=== PATIENT | male | born 1990 | race Caucasian/White ===

== ENCOUNTER 2017-10-04 07:19 | Emergency (ER) | payer OTHER ==
[~2017-10-04] VITALS: Ht 172.7 cm; Wt 98.5 kg
[2017-10-04 07:22] VITALS: TEMP 36.8; Ht 172.7 cm; Wt 98.5 kg
[2017-10-04] MEDS ORDERED: ONDANSETRON INJ 2 MG/ML 2 ML VIAL IV STA (07:30)
[2017-10-04 07:57] LABS: BASO % 0.8 %; BASO ABS # 0.04 K/uL (0-0.2); EOS % 4.8 %; EOS ABS # 0.25 K/uL (0-0.5); HEMATOCRIT 43.6 % (42-52); HEMOGLOBIN 15.5 g/dL (14.0-18.0); IG# 0.01 K/uL (0.00-0.02); LYMPH ABS # 1.76 K/uL (1.2-3.4); MEAN CELL VOLUME 87.2 fL (80-100); MEAN CORPUSCULAR HGB CONC 35.6 g/dl (32-36); MEAN PLATELET VOLUME 9.8 fL (7.4-10.4); MONO % 9.9 %; MONO ABS # 0.51 K/uL (0.11-0.59); NEUT % 50.3 %; PLATELET COUNT 255 K/uL (130-400); RED CELL DISTRIBUTION WIDTH CV 12.8 % (11.5-14.5); RED CELL DISTRIBUTION WIDTH SD 40.9 fL (36.4-46.3); WHITE BLOOD COUNT 5.17 K/uL (4.8-10.8)
[2017-10-04 08:05] LABS: CALCIUM 8.7 mg/dl (8.5-10.1); CREATININE 0.95 mg/dl (0.60-1.40)
[2017-10-04] MEDS ORDERED: KETOROLAC TROMETHAMINE 30 MG/ML VIAL IV STA (08:29)
[2017-10-04] MEDS ORDERED: KETOROLAC TROMETHAMINE 30 MG/ML VIAL ONE ×2 (08:55→08:58)
--- NOTE | 2017-10-04 09:31 | DIAGNOSTIC IMAGING REPORT ---
ABD/PELVIS WITHOUT FOR STONE HISTORY: 27 years-old Male Left flank pain acute left-sided flank pain. COMPARISON: None available TECHNIQUE: Multiple axial CT images of the abdomen and pelvis were obtained without IV contrast. A dose lowering technique was used consistent with the principals of TIMOTHY. FINDINGS: Minimal subsegmental dependent bibasilar atelectasis. No pneumatosis or pneumoperitoneum. The imaged inferior cardiac chambers are unremarkable. Evaluation of the solid abdominal organs is limited without use of contrast. Within the limitations of the study, the liver, gallbladder, pancreas and adrenal glands are within normal limits. There are punctate scattered calcifications throughout the spleen suggesting prior granulomatous disease. 4 mm nonobstructing calculus involves the interpolar right kidney. No right ureteral calculi. There are 2 stones present within the superior pole left kidney measuring 2 and 3 mm respectively. 2 mm nonobstructing calculus involves the inferior pole left kidney. There is mild left-sided hydroureteronephrosis secondary to a 4 x 3 x 4 mm calculus of the distal left ureter which is present approximately 2 cm proximal to the ureterovesicular junction. Urinary bladder and prostate are within normal limits. Aorta is normal in course and caliber. No bulky adenopathy. There is no bowel obstruction or focal bowel wall thickening. Mild colonic diverticulosis without CT evidence of acute diverticulitis. Normal appendix. Soft tissues are unremarkable. Bones appear to be intact. IMPRESSION: 1. Mild left-sided hydroureteronephrosis secondary to a 4 x 3 x 4 mm calculus of the distal left ureter, 2.0 cm proximal to the ureterovesicular junction. 2. Bilateral nonobstructing nephrolithiasis. 3. Mild colonic diverticulosis without diverticulitis. 4. Normal appendix. The above report was generated using voice recognition software. It may contain grammatical, syntax or spelling errors. Electronically signed by: Ja Duvall M.D. 10/04/2017 9:30 AM Dictated Date/Time: 10/04/2017 9:25 AM
[2017-10-04] MEDS ORDERED: HYDR-5688 PO (09:44)
[2017-10-04] MEDS ORDERED: TAMS0.4C38 PO (09:44)
[2017-10-04 10:06] VITALS: BP 111/83; PULSE 76; O2SAT 100
--- NOTE | 2017-10-04 10:10 | DIAGNOSTIC IMAGING REPORT ---
KUB HISTORY: Follow-up study to assess stone of the distal left ureter. L ureteral stone COMPARISON: None. FINDINGS: The bowel gas pattern is non-obstructive. There is no organomegaly. 4 mm calculus of the left distal left ureter is again seen which appears in stable positioning. No additional ureteral calculi identified. Bilateral nephrolithiasis also appears unchanged. No pneumoperitoneum or pneumatosis. No fracture. IMPRESSION: 1. Unchanged 4 mm calculus of the distal left ureter. 2. Bilateral nephrolithiasis. Electronically signed by: Ja Duvall M.D. 10/04/2017 10:08 AM Dictated Date/Time: 10/04/2017 10:07 AM
--- NOTE | 2017-10-04 18:52 | EMERGENCY ROOM VISIT NOTE ---
ED Visit Note First contact with patient: 07:25 CHIEF COMPLAINT: Left Flank and abdominal pain today HISTORY OF PRESENT ILLNESS: This 27-year-old white male patient had sudden onset of pain in the left flank and left lower quadrant of the abdomen about 2 hours ago. There is nausea but no vomiting. The patient has not noticed any blood in urine or had any increased frequency or pain with urination recently. There is no history of kidney stones. He states he thinks his mother had kidney stones. The pain is steady and severe. No trauma. No symptoms on the right. A female friend accompanies him today. No treatment yet. REVIEW OF SYSTEM: HEENT: No dizziness, visual problems, hearing loss, or tinnitus. There is no difficulty swallowing and no oral lesions are present. PULMONARY: No cough, shortness of breath, sputum production or hemoptysis. CARDIOVASCULAR: No chest pain, palpitations, shortness of breath or peripheral edema. GASTROINTESTINAL: No diarrhea, constipation, nausea, vomiting, or abdominal pain. GENITOURINARY: No dysuria, frequency, urgency or nocturia. NEUROLOGIC: No weakness, muscle tenderness, epilepsy or history of neurological problems. MUSCULOSKELETAL: No history of joint tenderness/swelling. No history of arthritis or arthralgias. SKIN: No rashes or lesions. PSYCHIATRIC: No history of depression or mental illness. ENDOCRINE: No history of diabetes, thyroid disorders, or abnormal hair growth. PMH: Supplemental sheet was reviewed and signed. Previous surgeries: None Medical history: Benign Current medications: None Allergies: NKDA Family history: Significant for kidney stones SOCIAL HISTORY: Patient lives at home. Non-smoker, no excessive alcohol use. PHYSICAL EXAM: Vital Signs: Temp 36.8 pulse 82 BP 129/83 respirations 20 general : Well-developed, well-nourished, young white male, in obvious discomfort. He is sitting on the bed. Alert and oriented. Skin: Warm and dry with good turgor. No rashes or lesions. No ecchymosis or erythema. The patient is not diaphoretic. No abrasions. HEART: Regular rate and rhythm without murmurs, ectopy, gallops, or rubs. Peripheral pulses are 2+. LUNGS: Clear to auscultation and breath sounds equal. No wheezes, rales, or rhonchi. Good air movement. ABDOMEN: Obese. Soft, non-tender, no hepato-splenomegaly, or masses. There is left CVA tenderness. There is also left lower quadrant abdominal discomfort with palpation. No suprapubic pain. NEUROLOGICAL: Sensory and motor functions grossly intact. EYES: PERRL, EOMI, no discharge or injection. EMERGENCY DEPARTMENT COURSE: Urinalysis shows 3+ blood. CBC and PRP were unremarkable. CT scan of the abdomen and pelvis without contrast shows a 4 mm left ureteral stone approximately 2 cm from the Bladder. He also has retained kidney stones in both the right and left kidneys. KUB was obtained for comparison at the urology office. The patient was given Toradol 30 mg IV for the pain. He is also given Zofran 4 mg IV for nausea. The pain had almost disappeared by the time of discharge. DIAGNOSIS: Left ureterolithiasis DISCHARGE INSTRUCTIONS AND TREATMENT: The patient was educated regarding today' s findings. Conservative care measures were discussed. High fluid intake, strain all urine passed over the next 2 days and bring any solid particles you find to your urologist for analysis. Prescription was given for Mobile 5 mg, 1- 2 tablets every 6 hours if needed for pain. Driving precautions were given. Return to the ER if the pain becomes severe. Kidney stone handout was provided. He is aware that this should pass. Prescription was also provided for Flomax 0.4 mg to be used once daily for the next 4 days. Hypotension symptoms were reviewed. Current/Historical Medications Scheduled Tamsulosin Hcl (Flomax), 0.4 MG PO DAILY Scheduled PRN Hydrocodone/Acetaminophen 5MG/325MG (Mobile 5MG/325MG), 1-2 TABLET PO Q6H PRN for Pain Allergies Coded Allergies: BEE STING (Unverified Allergy, Unknown, ANAPHYLAXIS, 10/04/17) Vital Signs Date Time Temp Pulse Resp B/P (MAP) Pulse Ox O2 Delivery O2 Flow Rate FiO2 10/04/17 10:06 76 20 111/83 100 10/04/17 08:21 71 20 125/69 95 10/04/17 07:22 36.8 82 20 129/83 99 Room Air Laboratory Results 10/04/17 07:40 Red Blood Count 5.00, Mean Corpuscular Volume 87.2, Mean Corpuscular Hemoglobin 31.0, Mean Corpuscular Hemoglobin Concent 35.6, Mean Platelet Volume 9.8, Neutrophils (%) (Auto) 50.3, Lymphocytes (%) (Auto) 34.0, Monocytes (%) (Auto) 9.9, Eosinophils (%) (Auto) 4.8, Basophils (%) (Auto) 0.8, Neutrophils # (Auto) 2.60, Lymphocytes # (Auto) 1.76, Monocytes # (Auto) 0.51, Eosinophils # (Auto) 0.25, Basophils # (Auto) 0.04 10/04/17 07:40 Test 10/04/17 00:00 10/04/17 07:40 Urine Color YELLOW Urine Appearance CLEAR (CLEAR) Urine pH 6.0 (4.5-7.5) Urine Specific Darden 1.022 (1.000-1.030) Urine Protein NEG (NEG) Urine Glucose (UA) NEG (NEG) Urine Ketones NEG (NEG) Urine Occult Blood 3+ (NEG) Urine Nitrite NEG (NEG) Urine Bilirubin NEG (NEG) Urine Urobilinogen NEG (NEG) Urine Leukocyte Esterase NEG (NEG) Urine WBC (Auto) 1-5 /hpf (0-5) Urine RBC (Auto) >30 /hpf (0-4) Urine Hyaline Casts (Auto) 1-5 /lpf (0-5) Urine Epithelial Cells (Auto) 10-20 /lpf (0-5) Urine Bacteria (Auto) NEG (NEG) White Blood Count 5.17 K/uL (4.8-10.8) Red Blood Count 5.00 M/uL (4.7-6.1) Hemoglobin 15.5 g/dL (14.0-18.0) Hematocrit 43.6 % (42-52) Mean Corpuscular Volume 87.2 fL (80-100) Mean Corpuscular Hemoglobin 31.0 pg (25-34) Mean Corpuscular Hemoglobin Concent 35.6 g/dl (32-36) Platelet Count 255 K/uL (130-400) Mean Platelet Volume 9.8 fL (7.4-10.4) Neutrophils (%) (Auto) 50.3 % Lymphocytes (%) (Auto) 34.0 % Monocytes (%) (Auto) 9.9 % Eosinophils (%) (Auto) 4.8 % Basophils (%) (Auto) 0.8 % Neutrophils # (Auto) 2.60 K/uL (1.4-6.5) Lymphocytes # (Auto) 1.76 K/uL (1.2-3.4) Monocytes # (Auto) 0.51 K/uL (0.11-0.59) Eosinophils # (Auto) 0.25 K/uL (0-0.5) Basophils # (Auto) 0.04 K/uL (0-0.2) RDW Standard Deviation 40.9 fL (36.4-46.3) RDW Coefficient of Variation 12.8 % (11.5-14.5) Immature Granulocyte % (Auto) 0.2 % Immature Granulocyte # (Auto) 0.01 K/uL (0.00-0.02) Anion Gap 9.0 mmol/L (3-11) Est Creatinine Clear Calc Drug Dose 132.9 ml/min Estimated GFR () 126.6 Estimated GFR (Non- 109.3 BUN/Creatinine Ratio 14.8 (10-20) Calcium Level 8.7 mg/dl (8.5-10.1) Medications Administered Medications (Trade) Dose Ordered Sig/David Route Start Time Stop Time Status Last Admin Dose Admin Ondansetron HCl (Zofran Inj) 4 mg NOW STAT IV 10/04/17 07:30 10/04/17 07:32 DC 10/04/17 08:18 4 MG Ketorolac Tromethamine (Toradol Inj) 30 mg STK-MED ONCE .ROUTE 10/04/17 08:55 10/04/17 08:56 DC 10/04/17 08:55 30 MG Departure Information Impression Primary Impression: Ureterolithiasis Additional Impression: Left flank pain Dispostion Home / Self-Care Condition FAIR Prescriptions Tamsulosin Hcl (FLOMAX) 0.4 Mg Cap 0.4 MG PO DAILY, #5 CAP Prov: Ky Nunez,P.A. 10/04/17 Hydrocodone/Acetaminophen 5MG/325MG (Mobile 5MG/325MG) Tab 1-2 TABLET PO Q6H Y for Pain, #12 TAB For Initial Treatment Prov: Ky Nunez,P.A. 10/04/17 Referrals Issa Childers MD, Urology No Doctor, Assigned (PCP) Forms HOME CARE DOCUMENTATION FORM, Kidney stone size in mm: 4 SPECIAL NARCOTICS INSTRUCTIONS, MOTRIN USE, RENAL COLIC (KIDNEY STONES), TYLENOL USE, IMPORTANT VISIT INFORMATION Patient Instructions Kidney Stones - [facility], My [facility] Additional Instructions Maintain hydration Tylenol and Motrin every 6 hours as needed for discomfort Mobile 5 mg every 6 hours as needed for more severe pain-no driving Strain your urine and save any stones Follow-up with urology this week Return to the ED for any acute changes Problem Qualifiers
== END 2017-10-04 10:08 | disposition home or self-care (01) ==
LOC: C.EDB 07:23
DX: N20.1 Calculus of ureter (principal); Z84.1 Family history of disorders of kidney and ureter